=== PATIENT | female | born 1975 | race Caucasian/White ===

== ENCOUNTER 2017-09-16 05:42 | Day surgery (SDC) | payer OTHER ==
[~2017-09-16] VITALS: Ht 165.1 cm; Wt 81.6 kg
--- NOTE | ~2017-09-16 | EKG ---
[address] [address] ELECTROCARDIOGRAM REPORT Name: MEAGAN BERGER Room #: 409-P [facility]#: [id number] Admission: 09/16/17 Attend Phys: Honorio Krause MD Discharge: Date of : 77 Report #: [id number] THIS REPORT FOR: //name// [facility] Test Date: 2017-09-16 Test Time: 11:51:10 Pat Name: MEAGAN BERGER Department: Room: 150 6 Gender: F [facility] Director: PAULINE : 1975 Requested By: Honorio Krause Order Number: [id number] MD: Jevon Cruz Measurements Intervals [place] Rate: 86 P: 60 IN: 137 QRS: -10 QRSD: 82 T: 34 QT: 369 QTc: 442 Interpretive Statements Sinus rhythm No previous ECG available for comparison Electronically Signed On 09-16-2017 16:17:05 CDT by Jevon Cruz [email or web address] <ELECTRONICALLY SIGNED> By: Jevon Cruz MD 09/16/17 1617 1151 1151 MD SAMI Alvarez
--- NOTE | ~2017-09-16 | O ---
[facility] [place] [address] OPERATIVE REPORT Name: MEAGAN BERGER Room #: 409-P [facility]..#: [id number] Admission: 09/16/17 Attend Phys: Honorio Krause MD Discharge: Date of : 77 Report #: [id number] THIS REPORT FOR: //name// CC: Monica YUSUF FAM unknown Honorio Krause DATE OF SERVICE: 09/16/[address] Honorio Krause and MADELIN Whitley. PREOPERATIVE DIAGNOSES: Cholelithiasis, cholecystitis, biliary colic. POSTOPERATIVE DIAGNOSES: Cholelithiasis, cholecystitis, biliary colic. PROCEDURE: Laparoscopic cholecystectomy. SURGEON: Honorio Krause MD. [employer] OPERATOR: Linda Dominique RN. ANESTHESIA: General. DESCRIPTION OF PROCEDURE: The patient was brought to the operating room and placed on operative table in the supine position. Sequential compression devices were in place for DVT prophylaxis. She received an appropriate preoperative dose of antibiotics. The patient underwent a general endotracheal anesthesia and the abdomen was then prepped and draped in a sterile fashion. Skin and subcutaneous tissue around the umbilicus was then infiltrated with 0.5% Marcaine. An infraumbilical transverse skin incision was then performed using #11 scalpel blade. Hemostasis obtained using electrocautery. Dissection was carried down through subcutaneous tissue to the fascia, which was then grasped between 2 Iza clamps and incised with curved Sanchez scissors. The peritoneum was entered and a pursestring suture of 0 Vicryl was then placed in the fascia. A 12-mm disposable Felipe port was inserted through the opening held into place with the balloon port and the pursestring suture. Pneumoperitoneum was obtained to a level of 10-15 mmHg. Laparoscope was inserted through this port and exploration was performed, which revealed a thickened dilated gallbladder with numerous stones. There were no other intra-abdominal abnormalities. Two lateral 5-mm Surgiport as well as an upper midline 12-mm Surgiport were all inserted under direct visualization after infiltration with 0.5% Marcaine. The gallbladder was then grasped and retracted superiorly and the cystic duct and artery were carefully dissected free. The cystic artery was doubly clipped on each side and divided with the scissors. The cystic common bile duct junction was clearly identified and the cystic duct was then triply clipped on the common bile duct side and doubly clipped on the gallbladder side and divided with the [address] [address] OPERATIVE REPORT Name: MEAGAN BERGER Room #: 409-P [facility]..#: [id number] Admission: 09/16/17 Attend Phys: Honorio Krause MD Discharge: Date of : 77 Report #: [id number] scissors. The gallbladder was then dissected free from the bed using the hook electrocautery. Prior to completing the dissection, the gallbladder was retracted superiorly and the bed inspected for hemostasis, which was obtained using electrocautery and found to be intact. The gallbladder was transected and brought out through the periumbilical port and sent as specimen to pathology. Port was then returned to the abdomen. The area was then copiously irrigated with warm saline solution, which was suctioned free and hemostasis was checked and found to be intact. The ports were then all removed under direct visualization, hemostasis intact at each port site. Pneumoperitoneum was released and the periumbilical port was then also removed under direct visualization, hemostasis intact at that port site as well. The periumbilical fascia was then closed using the 0 Vicryl pursestring suture. The upper midline fascia was then closed using a [id number] 0 Vicryl suture. Skin was then closed using interrupted vertical mattress 5-0 nylon sutures. The wound was dressed with Band-Aids. The patient was then awakened from the general endotracheal anesthesia, extubated, and taken to recovery room in good condition. Estimated blood loss was approximately 10 mL and the patient tolerated procedure well. All sponge, lap and instrument counts correct x 2. By: 1533 [id number] Honorio Krause MD /nt
[~2017-09-16 05:42] MED LIST: LISINOPRIL10 MG PO; PROBIOTIC1 EAC1 PO
[2017-09-16 12:31] VITALS: BP 114/83
[2017-09-16] MEDS ORDERED: NORCO 5-325 TA1 EACH PO (14:13)
[2017-09-16 19:20] VITALS: BP 114/83
[2017-09-16 20:25] VITALS: BP 114/83
== END 2017-09-16 20:25 | disposition home or self-care (01) ==
LOC: TBA 05:42 → OR 05:42 → 4N 14:12 → OR 15:16
DX: K80.61 Calculus of gallbladder and bile duct with cholecystitis, unspecified, with obstruction (principal); I10 Essential (primary) hypertension; Z79.891 Long term (current) use of opiate analgesic; Z79.899 Other long term (current) drug therapy
CPT/HCPCS: 10790; 50010; 50101; 50411; 50555; 50558; 51474; 51489; 52266; 53314; 56462; 56524; 56528; 62110; 62900; 70005